=== PATIENT | male | born 1980 | race Caucasian/White ===

== ENCOUNTER → 2019-11-28 | Outpatient (CLI) | payer BC ==
--- NOTE | 2019-11-28 08:55 | RAD ---
Examination: ABDOMEN COMPLETE History: Elevated liver enzymes Comparison/Correlation: None Findings: Complete upper abdominal ultrasound was performed. Cholecystectomy noted. Hepatic echotexture is echogenic. No biliary dilatation. Common bile duct is unremarkable. Portal venous flow is unremarkable. The right kidney measures 9.9 cm x 5.2 cm x 5.8 cm. Left kidney measures 11.4 cm x 5.2 cm x 4.8 cm. No hydronephrosis. Normal renal contours and renal echotexture are unremarkable. Proximal pancreas is normal. Distal pancreas is obscured by gas. No upper abdominal ascites. Aorta and inferior vena cava are not well visualized. Visualized abdominal aorta is unremarkable. Impression: Fatty infiltration of the liver. No biliary dilatation. Electronically signed by: Braxton Ibanez MD (11/28/2019 8:52 AM) [facility]
[2019-11-28 10:14] LABS: BASO # 0.1 x10^3/uL (0.0-0.2); BASO % 1 % (0-3); EOS # 0.3 x10^3/uL (0.0-0.7); EOS % 4 % (0-3); HEMATOCRIT 47.3 % (39.0-53.0); HEMOGLOBIN 15.6 g/dL (13.0-17.5); LYMPH # 2.5 x10^3/uL (1.0-4.8); LYMPH % 26 % (24-48); MEAN CORPUSCULAR HEMOGLOBIN 28 pg (25-35); MEAN CORPUSCULAR HGB CONC 33 g/dL (31-37); MEAN CORPUSCULAR VOLUME 84 fL (79-100); MONO # 0.7 x10^3/uL (0.0-1.1); MONO % 8 % (0-9); NEUT # 5.8 x10^3uL (1.8-7.7); NEUT % 62 % (31-73); PLATELET COUNT 248 x10^3/uL (140-400); RED BLOOD COUNT 5.62 x10^6/uL (4.30-5.70); RED CELL DISTRIBUTION WIDTH 14.2 % (11.5-14.5); WHITE BLOOD COUNT 9.4 x10^3/uL (4.0-11.0)
== END | disposition home or self-care (01) ==
LOC: US 07:27
PROVIDERS: ATTEND Family Medicine
DX: K76.0 Fatty (change of) liver, not elsewhere classified (principal)
CPT/HCPCS: 36415; 76700; 83615; 85025; 86705; 86709; 86803; 87340